=== PATIENT | female | born 1945 | race Caucasian/White ===

== ENCOUNTER → 2024-06-10 09:54 | Outpatient (BNVA) | payer MEDICARE, BC, SELFPAY | PROVIDERS: PCP Nurse Practitioner Family; Referring Provider Nurse Practitioner Family; Visit Provider Psychiatry & Neurology Neurology | DX: I62.03 Nontraumatic chronic subdural hemorrhage (principal); E55.9 Vitamin D deficiency, unspecified; R29.818 Other symptoms and signs involving the nervous system; R55 Syncope and collapse | CPT/HCPCS: 36415; 82306; 82565; 84520; 99203 ==

== ENCOUNTER → 2024-06-20 11:31 | Outpatient (BNVA) | payer MEDICARE, BC, SELFPAY | PROVIDERS: PCP Nurse Practitioner Family; Referring Provider Psychiatry & Neurology Neurology; Visit Provider Psychiatry & Neurology Neurology | DX: R55 Syncope and collapse (principal); R29.818 Other symptoms and signs involving the nervous system; S06.5XAA Traumatic subdural hemorrhage with loss of consciousness status unknown, initial encounter; X58.XXXA Exposure to other specified factors, initial encounter | CPT/HCPCS: 95813 ==

== ENCOUNTER → 2024-10-14 09:41 | Outpatient (BNVA) | payer MEDICARE, BC, SELFPAY | PROVIDERS: PCP Nurse Practitioner Family; Visit Provider Psychiatry & Neurology Neurology | DX: I62.03 Nontraumatic chronic subdural hemorrhage (principal); R29.818 Other symptoms and signs involving the nervous system; R55 Syncope and collapse | CPT/HCPCS: 99212 ==